=== PATIENT | female | born 1990 | race Hispanic/Latino ===

== ENCOUNTER 2024-05-15 12:02 | Emergency (ER) | payer MEDICARE, MEDICAID ==
[~2024-05-15] VITALS: Ht 175.3 cm; Wt 140.2 kg
--- NOTE | 2024-05-15 13:05 | ERN ---
ED Note History of Present Illness Stated Complaint: RT FOOT INJURY Chief Complaint: FOOT INJURY/PAIN Time Seen by MD: 12:48 Dictation: THIS 34-YEAR-OLD FEMALE WITH NO MAJOR MEDICAL ILLNESSES PRESENTS WITH TWO DAYS OF PROGRESSIVE PAIN IN THE AREA OF THE RIGHT ACHILLES TENDON WITH SOME SWELLING ABOUT THE ANKLE. 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 Pain was mild yesterday but today it was very severe and she was unable to weight bear. The patient denies any fever or previous similar episodes. There is no calf pain or swelling. There was no distal weakness numbness or tingling in the foot is not swollen Patient has no major medical problems and does not have a history of rheumatologic disease or previous tendinitis. She does not smoke drink use recreational drugs Allergies: Coded Allergies: No Known Drug Allergies (Unverified Allergy, Unknown, 05/15/24) Past Medical History Past Medical History: No Pertinent History Surgical History: None Review of System Dictation All pertinent systems reviewed, negative except as documented in the HPI The ROS is obtained from patient GENERAL/CONSTITUTIONAL: Negative except as documented in HPI. MUSCULOSKELETAL: Negative except as documented in HPI. SKIN: Negative except as documented in HPI. NEUROLOGIC: Negative except as documented in HPI. Initial Vital Sign VS Vital Signs Date Time Temp Pulse Resp B/P (MAP) Pulse Ox O2 Delivery O2 Flow Rate FiO2 05/15/24 12:42 98.1 86 18 154/74 98 05/15/24 13:00 Room Air* 0 21 Physical Exam Dictation VITAL SIGNS: note is made of triage vital signs. Note is made of a BMI of 45.6 CONSTITUTIONAL: This is a comfortable patient who is awake, alert, and appropriately interactive. SKIN: Warm, dry, with normal turgor. Capillary refill less than 3 seconds. Normal color.No rash. No cellulitis or abscess. No evidence of acute injury. MS/Extremity: There is no calf tenderness. The patient has exquisite pain on flexion and extension of the right ankle which is localized in the area of the Achilles tendon. There is swelling about the ankle slightly more on the lateral than on the medial aspect. Palpation of the Achilles tendon is exquisitely tender but the tendon is tight and does not appear to be ruptured. The toes are warm and well-perfused and move normally. There is a strong dorsalis pedis pulse. There are no deformities. NEURO: Awake and alert, lucid. Facies symmetric and speech is clear. Motor strength 5/5 in all extremities. Sensory grossly intact. PSYCH: Patient is appropriately attentive and cooperative without evidence of hallucination. Results (Laboratory/Radiology) X-RAY Comment: I have reviewed the radiograph. There are no acute bony abnormalities of the right ankle. Radiology read is pending at the time of the patient's disposition ED Course ED Course Orders Procedure Category Date Status Time Ketorolac 60mg/2ml PHA 05/15/24 Complete (Toradol 60mg/2ml) 13:00 Ankle Comp 3vws Rt RAD 05/15/24 Taken 12:57 Current Medications Medications (Trade) Dose Ordered Sig/Carlin Route PRN Reason Start Time Stop Time Status Last Admin Dose Admin Ketorolac Tromethamine (toRADol 60MG/ 2ML) 60 mg ONCE ONCE IM 05/15/24 13:00 05/15/24 13:01 DC 05/15/24 13:08 Vital Signs Date Time Temp Pulse Resp B/P (MAP) Pulse Ox O2 Delivery O2 Flow Rate FiO2 05/15/24 13:00 97.9 78 20 130/60 98 Room Air* 0 21 05/15/24 12:42 98.1 86 18 154/74 98 Medical Decision Making MDM INITIAL IMPRESSION Initial history and physical concerning for tendinitis of the right Achilles tendon Contributing medical problems: Obesity I have reviewed the triage nursing notes and vital signs. The patient is afebrile with acceptable oxygen saturation, heart rate and blood pressure. Initial plan: Imaging to rule out bony avulsion, nonsteroidal anti-inflammatory DATA REVIEW I have reviewed additional NN, repeat VS, and monitoring where indicated. Heart rate, blood pressure, and O2 saturation are acceptable. Estrada diagnostic results: No bony abnormality Other independent historian: none Review of external data: None. ED COURSE Interventions: The patient received nonsteroidal anti-inflammatories. A posterior splint was placed maintaining the foot in neutral position and crutches were provided for short term immobilization. Reassessment: She did experience some pain relief and now the pain is well localized to the Achilles tendon insertion site DISPOSITION Final diagnostic impression: Acute Achilles tendinitis I discussed my findings, clinical impression and treatment recommendations with the patient. I have reviewed the social factors contributing to the patient's presentation and disposition planning. My final plan for disposition was made based upon clinical findings, response to treatment and discussion with the patient regarding management options. Hospitalization is not indicated as in-hospital treatment is not required for management of this problem At the time of discharge, the vital signs are within acceptable limits. The discharge treatment plan includes use of nonsteroidal anti-inflammatories, short term immobilization and close follow up with a local family physician I have reviewed the use of [id number] ibuprofen Incidental findings discussed: none Questions were invited and answered in layman's terms. I have emphasized my follow-up recommendations and reviewed ED return precauti ons. I have answered any questions in layman's terms. The patient understands that they will have to arrange for out-patient follow-up for recheck of today's condition. The patient is stable and appropriate for discharge from the ED. This dictation was prepared using [employer] voice recognition software. Occasional voice recognition errors may occur. When identified, these errors have been corrected. While every attempt is made to correct errors during dictation, errors may still exist. DX & DISP Disposition: Discharge Decision to Admit Date: May 15, 2024 Decision to Admit Time: 13:04 Departure Impression: Primary Impression: Acute tendinitis right Achilles tendon Additional Impression: BMI greater than 45 Condition: Stable Additional Instructions: Take [id number] ibuprofen 200 mg tablets, four pills 4 times a day (every 6 hours) with food for two weeks. After the 1st two weeks start to taper the medication down in frequency and number of tablets. Leave the splint in place and use crutches for the 1st 48 hours. Sleep with your leg elevated to reduce swelling. It is okay to use topical creams such as Enrico-Lopez or icy hot to help reduce discomfort. Establish with a local family physician within four days and follow up if you are not improving for consideration of referral to physical therapy. After the 1st 48 hours begin gentle weight-bearing and return to work as dictated by your symptoms. Return to the emergency department for sudden severe loss of function of the ankle, pain extending up the calf, new onset swelling or bruising or other munoz es Off work for 48 hours and then light duty as tolerated for two weeks Referrals: SELF,REFERRAL (PCP) Time of Disposition: 13:59 BRIGIDO PAYNE MD May 15, 2024 13:05
[2024-05-15] MEDS: ketOROlac 60 MG VIAL (30MG/ML) IM ONE (13:08)
[2024-05-15 14:08] VITALS: BP 158/67; PULSE 88; RESP 16; TEMP 98.1; O2SAT 97
--- NOTE | 2024-05-15 17:26 | HMCIMG ---
ANKLE COMP 3VWS RT CLINICAL HISTORY: ACHILLES TENDON PAIN SWELLING COMPARISON: None TECHNIQUE: AP lateral and oblique images were obtained. FINDINGS: No obvious fracture or dislocation. No joint effusion. The soft tissues appear unremarkable. No radiopaque foreign bodies. IMPRESSION: No acute findings.
== END 2024-05-15 14:17 | disposition home or self-care (01) ==
LOC: EDH 12:02
DX: M76.61 Achilles tendinitis, right leg (principal); Z68.42 Body mass index [BMI] 45.0-49.9, adult
CPT/HCPCS: 99283; 29515; 73610; 96372; J1885

== ENCOUNTER 2024-08-29 13:05 | Emergency (ER) | payer MEDICAID, MEDICARE ==
[~2024-08-29] VITALS: Ht 175.3 cm; Wt 147.4 kg
--- NOTE | 2024-08-29 13:38 | ERN ---
General Chief Complaint: Flu Symptoms Stated Complaint: FLU LIKE SYMPTOMS Time Seen by MD: 13:07 Source: patient History of Present Illness Initial Comments PATIENT IS A 34-YEAR-OLD FEMALE COMING IN TO BE EVALUATED FOR BODY ACHES. PER PATIENT THESE SYMPTOMS BEGAN A COUPLE OF DAYS AGO WITH A PROGRESSIVELY GETTING WORSE. ALONG WITH THIS PATIENT STATES HE FEELS VERY WEAK AND DEHYDRATED. Allergies: Coded Allergies: No Known Drug Allergies (Unverified Allergy, Unknown, 05/15/24) Past Medical History Past Medical History: Other Medical History Other: MORBID OBESITY Past Surgical History: None ROS Dictation CONSTITUTIONAL: NO CHILLS, NO FEVER, NO WEAKNESS, NO DIAPHORESIS, NO MALAISE. HEAD/FACE: NO SIGNS OF TRAUMA. EENT: NO EYE PAIN, NO BLURRED VISION, NO TEARING, NO DOUBLE VISION, NO EAR PAIN, NO EAR DISCHARGE, NO NOSE PAIN, NO NASAL CONGESTION, NO THROAT PAIN, NO THROAT SWELLING, NO MOUTH PAIN. RESPIRATORY: NO COUGH, NO ORTHOPNEA, NO SOB, NO STRIDOR, NO WHEEZING. CARDIOVASCULAR: NO CHEST PAIN, NO EDEMA, NO PALPITATIONS, NO SYNCOPE. GASTROINTESTINAL/ABDOMINAL: NO ABDOMINAL PAIN, NO CONSTIPATION, NO DIARRHEA, NO NAUSEA, NO VOMITING. GENITOURINARY: NO ABNORMAL DISCHARGE, NO DYSURIA, NO FREQUENT URINATION, NO HEMATURIA. NO COMPLAINTS OF PAIN IN THE GENITALS. MUSCULOSKELETAL: NO BACK PAIN, NO GOUT, NO JOINT PAIN, NO JOINT SWELLING, NO MUSCLE PAIN, NO MUSCLE STIFFNESS, NO NECK PAIN. INTEGUMENTARY: NO CHANGE IN COLOR, NO CHANGE IN HAIR/NAILS, NO DRYNESS, NO LESION, NO LUMPS, NO RASH. NEUROLOGICAL/PSYCH: NO ANXIETY, NOT DEPRESSED, NO EMOTIONAL PROBLEM, NO HEADACHE, NO NUMBNESS, NO PRE-EXISTING DEFICIT, NO HISTORY OF SEIZURES, NO TREMORS, NO WEAKNESS. HEMATOLOGIC/LYMPHATIC: NOT ANEMIC, NO HISTORY OF BLOOD CLOTS, NO APPARENT BLEEDING, NO BRUISING, GLANDS NOT SWOLLEN. ALL SYSTEMS NEGATIVE, EXCEPT NOTED. Physical Exam Physical Exam Dictation VITAL SIGNS: REVIEWED. GENERAL APPEARANCE: ALERT, ORIENTED X3, NO ACUTE DISTRESS, OBESE. HEAD AND FACE: NON-TRAUMATIC. EYES: PERRL, PINK CONJUNCTIVAS, EYELID NO TRAUMA, ANTERIOR CHAMBER CLEAR. EARS: PINNAS INTACT AND NO SIGNS OF TRAUMA OR ERYTHEMA. EAR CANALS CLEAR AND NO DISCHARGE. TMS NO ERYTHEMA. NOSE: NO DISCHARGE, NO BLEEDING. OROPHARYNX: MOUTH NORMAL, TEETH NO CARIES, TONGUE PINK. PHARYNX CLEAR, NO ERYTHEMA. TONSILS NO EXUDATES, NO ABSCESSES NOTED. MUCOUS MEMBRANE MOIST. NECK: SUPPLE, NON-TENDER, NO THYROMEGALY, NO MASSES, NO JVD, NO BRUITS. BREAST: DEFERRED. CHEST: NO TENDERNESS, NO CREPITUS, NO PARADOXICAL MOVEMENT, NO RETRACTIONS. LUNGS: CLEAR, WELL-VENTILATED, SYMMETRIC, NO RALES, NO WHEEZING, NO RHONCHI, NO STRIDOR, GOOD BREATH SOUNDS BILATERALLY. HEART: REGULAR RATE, REGULAR RHYTHM, NO MURMUR, NO GALLOPS. VASCULAR: NO PERIPHERAL EDEMA. ABDOMEN: SOFT, POSITIVE BOWEL SOUNDS, NONDISTENDED, NO GUARDING, NONTENDER, NO REBOUND, NO MASSES NO HEPATOMEGALY, NO SPLENOMEGALY, NO LINK'S SIGN, NO HERNIAS. RECTAL: DEFERRED. GENITAL: DEFERRED. NEUROLOGICAL: NORMAL SPEECH, GROSS MOTOR FUNCTION INTACT, GROSS SENSORY FUNCTION INTACT. MUSCULOSKELETAL: NECK NONTENDER, FULL RANGE OF MOTION, BACK NONTENDER, FULL RANGE OF MOTION. EXTREMITIES: NONTENDER, FULL RANGE OF MOTION. SKIN: COLOR PINK, DRY, NO TURGOR, NO RASH, NO LACERATIONS, NO ABRASIONS, NO CONTUSIONS. LYMPHATICS: DEFERRED. Results Laboratory and Microbiology Lab and Micro Result Laboratory Tests Test 08/29/24 13:25 08/29/24 13:45 Influenza Type A Antigen Positive For Type A Influenza Type B Antigen Negative For Type B SARS-CoV-2, RNA, NAAT NEGATIVE SARS CoV-2 Group A Streptococcus Rapid negative (NEGATIVE) White Blood Count 6.3 K/uL (4.8-10.8) Red Blood Count 5.33 MIL/uL (4.00-5.50) Hemoglobin 14.3 g/dL (12.0-16.0) Hematocrit 43.6 % (36-48) Mean Corpuscular Volume 81.8 fL (79-99) Mean Corpuscular Hemoglobin 26.8 pg (27.0-33.0) L Mean Corpuscular Hemoglobin Concent 32.8 g/dL (32.0-36.0) Red Cell Distribution Width 13.2 % (11.0-15.5) Platelet Count 193 K/uL (130-400) Mean Platelet Volume 10.8 fL (7.5-10.5) H Immature Granulocyte % (Auto) 0.5 % (0-1) Neutrophils (%) (Auto) 85.3 % (40.0-77.0) H Lymphocytes (%) (Auto) 4.9 % (21.0-51.0) L Monocytes (%) (Auto) 8.7 % (3.0-13.0) Eosinophils (%) (Auto) 0.3 % (0.0-8.0) Basophils (%) (Auto) 0.3 % (0.0-5.0) Neutrophils # (Auto) 5.4 K/uL (1.8-7.7) Lymphocytes # (Auto) 0.3 K/uL (1.0-4.8) L Monocytes # (Auto) 0.6 K/uL (0.1-1.0) Eosinophils # (Auto) 0.02 K/uL (0.00-0.70) Basophils # (Auto) 0.02 K/uL (0.00-0.20) Absolute Immature Granulocyte (auto 0.03 K/uL (0-1) Nucleated Red Blood Cells 0.0 % (0.0-0.19) White Cell Morphology Comment See comments Sodium Level 131 mmol/L (136-145) L Potassium Level 3.5 mmol/L (3.5-5.1) Chloride Level 96 mmol/L (101-111) L Carbon Dioxide Level 29 mmol/L (21-32) Blood Urea Nitrogen 8 mg/dL (7-18) Creatinine 0.8 mg/dL (0.5-1.0) Glomerular Filtration Rate Calc 98 mL/min (>90) Random Glucose 106 mg/dL (70-105) H Total Calcium 8.1 mg/dL (8.5-10.1) L Labs Reviewed?: Yes MDM MDM: DIFFERENTIAL DIAGNOSIS: INFLUENZA, GENERALIZED BODY WEAKNESS, URI, PATIENT IS A 34-YEAR-OLD FEMALE COMING IN TO BE EVALUATED FOR URI SYMPTOMS. PATIENT WAS FOUND HAVE INFLUENZA. PATIENT WILL BE DISCHARGED IN STABLE C ONDITION WHEN SHE WAS HYDRATED PATIENT WAS STARTED FEELING MUCH BETTER. PATIENT WILL BE DISCHARGED IN STABLE CONDITION. ED Course Orders Procedure Category Date Status Time Cbc With Differential LAB 08/29/24 Complete 13:07 Basic Metabolic Panel LAB 08/29/24 Complete 13:07 Urinalysis LAB 08/29/24 Logged W/Microscopic 13:07 0.9%Nacl 1000ml (Ns PHA 08/29/24 Complete 1000ml) 13:30 Covid Rna Naat LAB 08/29/24 Complete 13:07 Influenza Type A & B, LAB 08/29/24 Complete Rapid 13:07 Rapid (Group A Strep) LAB 08/29/24 Complete 13:07 Current Medications Medications (Trade) Dose Ordered Sig/Carlin Route PRN Reason Start Time Stop Time Status Last Admin Dose Admin Sodium Chloride 1,000 ml @ 0 mls/hr ONCE ONCE IV 08/29/24 13:30 08/29/24 13:31 DC 08/29/24 14:36 Vital Signs Date Time Temp Pulse Resp B/P (MAP) Pulse Ox O2 Delivery O2 Flow Rate FiO2 08/29/24 14:24 102.0 91 16 137/70 94 Room Air* 0 21 08/29/24 13:06 102.9 94 19 132/75 98 Room Air 0 DX & DISP Disposition: Discharge Departure Impression: Primary Impression: Influenza A Condition: Stable Scripts Fluticasone Propionate (Flonase Nasal [place]) 50 Mcg/Actuation [place] 2 SPRAY NS DAILY, #16 GM 0 Refills Prov: LARISSA MCCALL MD 08/29/24 Loratadine (Loratadine) 10 Mg Tablet 1 TAB PO DAILY for allergy symptoms for 30 Days, #30 TAB 0 Refills Prov: LARISSA MCCALL MD 08/29/24 Oseltamivir Phosphate (Tamiflu) 75 Mg Cap 1 CAP PO BID for 5 Days, #10 CAP 0 Refills Prov: LARISSA MCCALL MD 08/29/24 Additional Instructions: FOLLOW-UP WITH PRIMARY CARE PROVIDER IN 1 TO 2 DAYS. TAKE MEDICATIONS DIRECTED HERE IN THE EMERGENCY ROOM. OKAY TO CONTINUE HOME MEDICATIONS UNLESS OTHERWISE DISCUSSED DURING YOUR VISIT IN THE EMERGENCY ROOM TODAY. RETURN TO YOUR NEAREST EMERGENCY ROOM IF SYMPTOMS WORSEN OR IF THERE IS NO IMPROVEMENT. CALL 911 IF YOU NEED IMMEDIATE ASSISTANCE. TAKE TYLENOL [id number] NEEDED AND IF NO CONTRAINDICATIONS ARE PRESENT. INCREASE ORAL HYDRATION. A WOUND CULTURE OR URINE CULTURE WAS ORDERED HERE IN THE EMERGENCY ROOM DEPARTMENT PLEASE FOLLOW-UP WITH PRIMARY CARE PROVIDER AND ADVISE THEM TO GET REPEAT PORTS FROM OUR FACILITY. IF YOU HAD ANY ARASH WRAP/SPLINTS THAT WERE APPLIED HERE, PLEASE DO NOT REMOVE THEM UNTIL YOU SEE YOUR PRIMARY CARE OR SPECIALTY. REFERRALS: Referrals: NONE (PCP) ALEXANDREA GARCIA MD Time of Disposition: 15:06 LARISSA MCCALL MD Aug 29, 2024 13:38
[2024-08-29 13:43] LABS: RAPID GROUP A STREP negative (NEGATIVE)
[2024-08-29 13:47] LABS: SARS-CoV-2, RNA, NAAT NEGATIVE SARS CoV-2 (NEGATIVE)
--- NOTE | 2024-08-29 13:50 | NUR ---
PLACED A 20G ON RIGHT ANTECUBITAL. TOOK BLOOD SAMPLES AND NOSE SWABS FOR FLU A/B AND STREP.
[2024-08-29 13:53] LABS: INFLUENZA TYPE B Negative For Type B (NEGATIVE)
[2024-08-29 14:01] LABS: BASOPHILS # (AUTO) 0.02 K/uL (0.00-0.20); BASOPHILS % (AUTO) 0.3 % (0.0-5.0); EOSINOPHILS # (AUTO) 0.02 K/uL (0.00-0.70); EOSINOPHILS % (AUTO) 0.3 % (0.0-8.0); HEMATOCRIT 43.6 % (36-48); IMMATURE GRANULOCYTE ABSOLUTE 0.03 K/uL (0-1); LYMPHOCYTES # (AUTO) 0.3 K/uL (1.0-4.8); LYMPHOCYTES % (AUTO) 4.9 % (21.0-51.0); MEAN CORPUSCULAR HEMOGLOBIN 26.8 pg (27.0-33.0); MEAN CORPUSCULAR HGB CONC 32.8 g/dL (32.0-36.0); MEAN CORPUSCULAR VOLUME 81.8 fL (79-99); MONOCYTES # (AUTO) 0.6 K/uL (0.1-1.0); MONOCYTES % (AUTO) 8.7 % (3.0-13.0); NEUTROPHILS # (AUTO) 5.4 K/uL (1.8-7.7); NEUTROPHILS % (AUTO) 85.3 % (40.0-77.0); PLATELET COUNT (AUTO) 193 K/uL (130-400); RED BLOOD CELL COUNT(AUTO) 5.33 MIL/uL (4.00-5.50); RED CELL DISTRIBUTION WIDTH 13.2 % (11.0-15.5); WHITE BLOOD COUNT (AUTO) 6.3 K/uL (4.8-10.8)
[2024-08-29 14:04] LABS: INFLUENZA TYPE A Positive For Type A (NEGATIVE)
[2024-08-29 14:20] LABS: CREATININE 0.8 mg/dL (0.5-1.0); POTASSIUM 3.5 mmol/L (3.5-5.1)
[2024-08-29 14:24] VITALS: BP 137/70; PULSE 91; RESP 16; TEMP 102; O2SAT 94
[2024-08-29] MEDS: 0.9%NACL 1000ML 1,000 ML IV ONE (14:36)
[2024-08-29] MEDS ORDERED: OSEL75 PO (15:07)
[2024-08-29] MEDS ORDERED: FLUT16H NS (15:07)
[2024-08-29] MEDS ORDERED: LORA10TA7 PO (15:07)
[2024-08-29] MEDS: ondanSETRON ODT 4MG TAB SL ONE (16:20)
== END 2024-08-29 15:50 | disposition home or self-care (01) ==
LOC: EDH 13:05
DX: J10.1 Influenza due to other identified influenza virus with other respiratory manifestations (principal); E66.01 Morbid (severe) obesity due to excess calories; Z20.822 Contact with and (suspected) exposure to COVID-19; Z68.42 Body mass index [BMI] 45.0-49.9, adult
CPT/HCPCS: 99284; 96360; 87635; 80048; 85025; 87880; 87804 ×2; 36415; J7030

== ENCOUNTER 2025-03-02 09:47 | Emergency (ER) | payer SELFPAY ==
[~2025-03-02] VITALS: Ht 175.3 cm; Wt 145.1 kg
[~2025-03-02 09:47] MED LIST: FLUT16H NS; LORA10TA7 PO; OSEL75 PO
[2025-03-02] MEDS: LACTATED RINGERS 1000ML 1,000 ML IV ONE (10:00)
[2025-03-02 10:36] LABS: IMMATURE GRANULOCYTE ABSOLUTE 0.01 K/uL (0-1); NUCLEATED RED BLOOD CELLS 0.0 % (0.0-0.19); PLATELET COUNT (AUTO) 227 K/uL (130-400); RED BLOOD CELL COUNT(AUTO) 5.70 MIL/uL (4.00-5.50); RED CELL DISTRIBUTION WIDTH 13.2 % (11.0-15.5); WHITE BLOOD COUNT (AUTO) 6.3 K/uL (4.8-10.8)
[2025-03-02 10:46] LABS: CREATININE 0.6 mg/dL (0.5-1.0); GLOMERULAR FILTR. RATE CALC 119.0 mL/min (>90); GLUCOSE,RANDOM 99.0 mg/dL (70-105); SODIUM SERUM 138.0 mmol/L (136-145); UREA NITROGEN, BLOOD 10.0 mg/dL (7-18)
[2025-03-02 10:50] LABS: ASPARTATE AMINOTRANSFERASE 24.0 U/L (10-37); TOTAL PROTEIN, SERUM 7.4 g/dL (6.0-8.3)
--- NOTE | 2025-03-02 10:54 | ERN ---
ED Note History of Present Illness Stated Complaint: NAUSEA, VOMITING, DIARRHEA, ABDOMINAL PAIN Chief Complaint: Nausea,Vomiting,Diarrhea Time Seen by MD: 10:45 Time Seen by Midlevel: 10:48 Dictation: 34-year-old female with the no past medical history coming in with complaints of nausea, vomiting, diarrhea for the last three days. Patient states she is also experiencing mild abdominal cramping and some burping. Patient states these symptoms began after eating a cheese that is smells funny. Denies any bloody emesis or stool. LMP states it is middle of last month. Allergies: Coded Allergies: No Known Drug Allergies (Unverified Allergy, Unknown, 05/15/24) Home Meds Active Scripts Dicyclomine HCl (Bentyl) 20 Mg Tab, 1 TAB PO BID for irritable bowel symptoms for 10 Days, #20 TAB 0 Refills Prov:MELVIN AGUDELO NP 03/02/25 Famotidine (Pepcid) 20 Mg Tablet, 1 TAB PO BID for 30 Days, #60 TAB 0 Refills Prov:MELVIN AGUDELO NP 03/02/25 Fluticasone Propionate (Flonase Nasal [place]) 50 Mcg/Actuation [place], 2 SPRAY NS DAILY, #16 GM 0 Refills Prov:LARISSA MCCALL MD 08/29/24 Loratadine (Loratadine) 10 Mg Tablet, 1 TAB PO DAILY for allergy symptoms for 30 Days, #30 TAB 0 Refills Prov:LARISSA MCCALL MD 08/29/24 Oseltamivir Phosphate (Tamiflu) 75 Mg Cap, 1 CAP PO BID for 5 Days, #10 CAP 0 Refills Prov:LARISSA MCCALL MD 08/29/24 Past Medical History Past Medical History: Other Additional Past Medical Hx: MORBID OBESITY Surgical History: None Review of System Dictation Constitutional: Negative for fever,chills, and weight loss Eyes: Negative for injury, pain,redness, and discharge ENT: Negative for injury,pain or swelling Cardiovascular: Negative for chest pain, palpitations, and edema Respiratory: Negative for shortness of breath, cough, and wheezing, Abdomen/GI: Complaining of abdominal cramping, nausea, vomiting and diarrhea Back: Negative for injury and pain : Negative for injury, bleeding and discharge MS/Extremity: Negative for injury and deformity Skin: Negative for rash, and discoloration Neuro: Negative for headache, weakness, numbness, tingling, and seizure Psych: Negative for suicide ideation, homicidal ideation, and hallucinations Review of Systems: was completed Initial Vital Sign VS Vital Signs Date Time Temp Pulse Resp B/P (MAP) Pulse Ox O2 Delivery O2 Flow Rate FiO2 03/02/25 09:49 97.9 101 16 145/93 97 Room Air 03/02/25 13:23 0 21 Physical Exam Dictation General: awake, alert, NAD Head/Face: Normocephalic, atraumatic Eyes: PERRL, EOMI, vision at baseline ENT: oral cavity clear, TMs clear, no signs of infection Neck: Trachea midline, supple, no nuchal rigidity Cardiovascular: RRR, normal S1/S2, No MRGs, no JVD Respiratory: CTAB, no respiratory distress, No rales or wheezes Abdomen: Soft, non-tender, non-distended, normal bowel sounds, no guarding or rebound. Skin: Warm, dry, normal turgor, no rash MS/Extremity: Pulses equal, no cyanosis, neurovascular intact, FROM Neuro: COAx4, GCS 15, strength 5/5, CN 2-12 intact, normal cerebellar exam, normal gait, Psych: Normal behavior, mood, and affect normal Results (Laboratory/Radiology) Laboratory/Radiology Laboratory Tests Test 03/02/25 10:20 03/02/25 13:13 White Blood Count 6.3 K/uL (4.8-10.8) Red Blood Count 5.70 MIL/uL (4.00-5.50) H Hemoglobin 15.5 g/dL (12.0-16.0) Hematocrit 47.5 % (36-48) Mean Corpuscular Volume 83.3 fL (79-99) Mean Corpuscular Hemoglobin 27.2 pg (27.0-33.0) Mean Corpuscular Hemoglobin Concent 32.6 g/dL (32.0-36.0) Red Cell Distribution Width 13.2 % (11.0-15.5) Platelet Count 227 K/uL (130-400) Mean Platelet Volume 11.3 fL (7.5-10.5) H Immature Granulocyte % (Auto) 0.2 % (0-1) Neutrophils (%) (Auto) 72.3 % (40.0-77.0) Lymphocytes (%) (Auto) 18.8 % (21.0-51.0) L Monocytes (%) (Auto) 7.6 % (3.0-13.0) Eosinophils (%) (Auto) 0.8 % (0.0-8.0) Basophils (%) (Auto) 0.3 % (0.0-5.0) Neutrophils # (Auto) 4.5 K/uL (1.8-7.7) Lymphocytes # (Auto) 1.2 K/uL (1.0-4.8) Monocytes # (Auto) 0.5 K/uL (0.1-1.0) Eosinophils # (Auto) 0.05 K/uL (0.00-0.70) Basophils # (Auto) 0.02 K/uL (0.00-0.20) Absolute Immature Granulocyte (auto 0.01 K/uL (0-1) Nucleated Red Blood Cells 0.0 % (0.0-0.19) Sodium Level 138 mmol/L (136-145) Potassium Level 3.6 mmol/L (3.5-5.1) Chloride Level 103 mmol/L (101-111) Carbon Dioxide Level 26 mmol/L (21-32) Blood Urea Nitrogen 10 mg/dL (7-18) Creatinine 0.6 mg/dL (0.5-1.0) Glomerular Filtration Rate Calc 119 mL/min (>90) Random Glucose 99 mg/dL (70-105) Total Calcium 8.3 mg/dL (8.5-10.1) L Total Bilirubin 1.1 mg/dL (0.2-1.0) H Direct Bilirubin 0.3 mg/dL (0.0-0.3) Aspartate Amino Transf (AST/SGOT) 24 U/L (10-37) Alanine Aminotransferase (ALT/SGPT) 41 U/L (12-78) Alkaline Phosphatase 77 U/L (50-136) Total Protein 7.4 g/dL (6.0-8.3) Albumin 3.6 g/dL (3.5-5.0) Lipase 17 U/L (16-77) Urine Color YELLOW (YELLOW) Urine Appearance CLEAR (CLEAR) Urine pH 6.0 (5.0-8.0) Urine Specific [place] 1.026 (1.001-1.031) Urine Protein 10 mg/dL (NEGATIVE) H Urine Glucose (UA) NEGATIVE mg/dL (NEGATIVE) Urine Ketones NEGATIVE mg/dL (NEGATIVE) Urine Occult Blood NEGATIVE (NEGATIVE) Urine Nitrate NEGATIVE (NEGATIVE) Urine Bilirubin NEGATIVE mg/dL (NEGATIVE) Urine Urobilinogen 6 mg/dL (0.2-1.0) H Urine Leukocyte Esterase NEGATIVE [place]/uL Urine RBC 2-5 /HPF (0-1) H Urine WBC 2-5 /HPF (0-1) H Urine Squamous Epithelial Cells RARE /HPF (0-2) Urine Bacteria None /HPF (None Seen) Urine HCG, Qualitative NEGATIVE (NEGATIVE) Labs Reviewed?: Yes ED Course ED Course Orders Procedure Category Date Status Time Cbc With Differential LAB 03/02/25 Complete 09:50 ,Urine Test LAB 03/02/25 Complete 09:50 Urinalysis Profile LAB 03/02/25 Complete 09:50 Lactated Ringers PHA 03/02/25 Complete 1000ml (Lactated 10:00 Ketorolac PHA 03/02/25 Complete Tromethamine 15mg/Ml 10:00 Ondansetron 4mg Inj PHA 03/02/25 Complete (Zofran 4mg Inj) 10:00 Lipase LAB 03/02/25 Complete 09:50 Basic Metabolic Panel LAB 03/02/25 Complete 09:50 Hepatic Function Panel LAB 03/02/25 Complete 09:50 Famotidine 20mg Vial PHA 03/02/25 Complete (Pepcid 20mg Vial) 11:00 Current Medications Medications (Trade) Dose Ordered Sig/[place] Route PRN Reason Start Time Stop Time Status Last Admin Dose Admin Famotidine (Pepcid 20mg Vial) 20 mg ONCE ONCE IV 03/02/25 11:00 03/02/25 11:01 DC 03/02/25 14:23 Ketorolac Tromethamine (toRADol) 15 mg ONCE ONCE IV 03/02/25 10:00 03/02/25 10:01 DC 03/02/25 14:23 Lactated Ringer's 1,000 ml @ 0 mls/hr ONCE ONCE IV 03/02/25 10:00 03/02/25 10:01 DC 03/02/25 10:00 Ondansetron HCl (zoFRAN 4MG INJ) 4 mg ONCE ONCE IVP 03/02/25 10:00 03/02/25 10:01 DC 03/02/25 14:23 Vital Signs Date Time Temp Pulse Resp B/P (MAP) Pulse Ox O2 Delivery O2 Flow Rate FiO2 03/02/25 14:41 98.2 69 20 132/69 97 Room Air* 0 21 03/02/25 13:23 98.2 95 20 118/75 97 Room Air* 0 21 03/02/25 09:49 97.9 101 16 145/93 97 Room Air Medical Decision Making MDM MDM: 34-year-old female with the no past medical history coming in with complaints of nausea, vomiting, diarrhea for the last three days. Patient states she is also experiencing mild abdominal cramping and some burping. Patient states these symptoms began after eating a cheese that is smells funny. Denies any bloody emesis or stool. LMP states it is middle of last month. 1230: Delay in disposition, pt still in ER lobby, no UA, or medications given. Blood work is unremarkable. More than likely the the patient's history and presenting symptoms gas viral gastroenteritis. Discussed with the patient she needs to start a bland diet starting with bras increasing as tolerated. Also educated to take probiotics [id number] to help repair intestinal maame. And educated to stay hydrated. Educated to follow up with PCP in 1-2 days. With the hospital as needed. Patient verbalized understanding, answered all questions. Differential diagnosis:gastroenteritis, pancreatitis, Rationale: Tests considered and ordered secondary to shared decision making include: Previous outside records reviewed: Old ER visits. Risk of complication and/or morbidity or mortality of patient management: None Medications-Per medication reconciliation Need for hospitalization: Patient does not meet criteria for hospitalization. Need for emergency major/minor surgery: No There are no social concerns with this patient. Prescription drug management Prescriptions will include symptomatic care Patient's prior external medical records from other ER visits were reviewed by me as indicated. Prior testing and results from previous visits were reviewed. Prior tests were taken into account with medical decision making and resource utilization, independent historian/historians were used to obtain complete medical history. I independently interpreted the test that were performed, results were reviewed by me and considered findings on radiology if ordered. Medical management and examination interpretation discussions were had by me with other qualified healthcare professionals as indicated for the patient's care. DX & DISP Disposition: Discharge Departure Impression: Primary Impression: Viral gastroenteritis Condition: Stable Scripts Dicyclomine HCl (Bentyl) 20 Mg Tab 1 TAB PO BID for irritable bowel symptoms for 10 Days, #20 TAB 0 Refills Prov: MELVIN AGUDELO NP 03/02/25 Famotidine (Pepcid) 20 Mg Tablet 1 TAB PO BID for 30 Days, #60 TAB 0 Refills Prov: MELVIN AGUDELO NP 03/02/25 Additional Instructions: Start to eat broth and soups, then a bland diet and increase as tolerated. Take medications as prescribed. Also you can take [id number] probiotics. As the material. Your intestinal floor. If you have any worsening symptoms return to the hospital otherwise follow up with your primary doctor in 1-2 days. Referrals: SELF,REFERRAL (PCP) Time of Disposition: 13:56 I have reviewed the case, and I agree with, Diagnosis and Plan MELVIN AGUDELO NP Mar 02, 2025 10:54 CRISTIAN MANE DO Mar 02, 2025 14:46
[2025-03-02 13:27] LABS: APPEARANCE,URINE CLEAR (CLEAR); GLUCOSE, URINE (UA) NEGATIVE (NEGATIVE); LEUKOCYTE ESTERASE ,URINE NEGATIVE Leu/uL (NEGATIVE); NITRATE,URINE NEGATIVE (NEGATIVE); OCCULT BLOOD,URINE NEGATIVE (NEGATIVE)
[2025-03-02 13:33] LABS: ADD UA MICROSCOPIC YES
[2025-03-02 13:37] LABS: SQUAMOUS EPITHELIAL CELL,UR RARE /HPF (0-2)
[2025-03-02 13:39] LABS: HCG,QUALITATIVE URINE NEGATIVE (NEGATIVE)
[2025-03-02] MEDS ORDERED: DICY20TA2 PO (13:55)
[2025-03-02] MEDS ORDERED: FAMO-136 PO (13:55)
[2025-03-02] MEDS: FAMOTIDINE 20MG VIAL IV ONE (14:23)
[2025-03-02 14:41] VITALS: BP 132/69; PULSE 69; RESP 20; TEMP 98.2; O2SAT 97
== END 2025-03-02 14:56 | disposition home or self-care (01) ==
LOC: EDH 09:47
DX: A08.4 Viral intestinal infection, unspecified (principal); E66.01 Morbid (severe) obesity due to excess calories; Z68.42 Body mass index [BMI] 45.0-49.9, adult
CPT/HCPCS: 99284; 96374; 96375; 80076; 80048; 83690; 85025; 81001; 81025; 36415; J1885; J1308; J2405